=== PATIENT | female | born 1965 | race Caucasian/White ===

== ENCOUNTER 2025-06-12 09:07 | Emergency (ER) | payer BC, SELFPAY ==
--- OUTSIDE RECORDS SUMMARY | 2025-06-12 09:18 | XMS_ITS | Patient Health Record ---
Author Organization [facility] melva Address [address] [place] [address] Care Team Providers Care Litharge Mill Operator Name Role Phone Iain CUENCA, Nakul Primary Care Provider Unavailabl e Reason For Referral No Information Medications Medication SIG (Take, Route, Frequency, Duration) Notes Start Date End Date Status Cholecalciferol 10 MCG (400 UNIT) take 1 capsule by oral route daily Oral 1 Active Immunizations Vaccine Route Administration Date Status Comme nts Infuenza, trivalent, recombinant, preservative free IM Intramuscular 03/31/2013 Administered Infuenza, trivalent, recombinant, preservative free Unknown 04/18/2014 Administered Infuenza, trivalent, recombinant, preservative free Unknown 03/28/2015 Administered per pt. 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 SInce then she is maintained on synthroid. Problem Major depression, single episode (00636366) Major depressive disorder, single episode, unspecified (F32.9) Active confirmed Problem Anxiety disorder (686780475) Anxiety disorder, unspecified (F41.9) Active confirmed social anxiety Plan Of Treatment No Information Insurance Providers Payer Name Payer Address Payer Phone Subscriber Number Group Number Insured Name Patient Relationship to Insured Coverage Start Date Coverage End Date [place] [address] [place] [address] [id number] Franny De La Cruz Self - patient is the insured 6 Medical (General) History Surgical History Surgery Date(Month/Year) Appendectomy; 2016-03-05 HYSTERECTOMY (PARTIAL): endo metriosis. , started with back pain and further studies shows endometriosis. , Date of Procedure: 1995; 2016-03-05 biopsy: breast benign right . Every jul mammogram. , Date of Procedure: 1998; 2016-03-05 Colonoscopy, Date of Procedure: 11/20/2013 ; 2016-03-31
--- OUTSIDE RECORDS SUMMARY | 2025-06-12 09:18 | XMS_ITS | Clinical Summary ---
Author Organization [facility] Training Advisor Address [address] [place] [address] Care Team Providers Care Supervisor Intermediates Name Role Phone Nakul Timmons MD Primary Care Provider Unavailabl e Source Comments [facility],non-owned Affiliates and Associated Physician Practices is amultiple site organization consisting of ambulatory clinics and hospital sitesin [place], [place], [place] and [place]. This disclosure is being madepursuant to the Care Everywhere program and may not contain all information available regarding this patient. 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 Gender Identity Not on file Sexual Orientation Not on file Plan of Treatment Health Maintenance Due Date Last Done Comments COLOGUARD (AGES 45-75) - COL ON CA SCREENING 1965 COLON MONITORING 1965 COLONOSCOPY - COLON CA SCREENING 1963 CT COLONOGRAPHY - COLON CA SCREENING 1965 Colorectal Cancer Screening 1965 FIT - COLON CA SCREENING 1963 FLEX SIG - COLON CA SCREENING 1963 LIPID TESTING 1965 MAMMOGRAM 1963 HIV SCREENING 1978 HEPATITIS C SCREENING 02/15/1981 DTAP/TDAP/TD VACCINES (1 - Tdap) 1982 PNEUMOCOCCAL VACCINE 50+ (1 of 1 - PCV) 2013 ZOSTER VACCINE (1 of 2) 2013 DEPRESSION SCREENING 06/14/2024 COVID-19 VACCINE (1 - 2024-2 6 season) 2025 INFLUENZA VACCINE (#1) 2025 05/05/2016 Respiratory Syncytial Virus (RSV) Vaccine Pt: or over 60 yrs (1 - 1-dose 75+ series) 2038 HEPATITIS B VACCINE Aged Out No longe r eligible based on patient's age to complete this topic HIB VACCINE Aged Out No longer eligi ble based on patient's age to complete this topic HPV VACCINE Aged Out No longer eligi ble based on patient's age to complete this topic MENINGOCOCCAL (Group B) VACC INE SHARED DECISION-MAKING Aged Out No longer eligibl e based on patient's age to complete this topic MENINGOCOCCAL GROUPS A/C/Y/W VACCINE Aged Out No longer eligible b ased on patient's age to complete this topic Insurance [address] [id number] Care Teams Supervisor Intermediates Relationship Specialty Start Date End Date Nakul Timmons MD PCP - General Internal Medicine 05/05/16
--- OUTSIDE RECORDS SUMMARY | 2025-06-12 09:18 | XMS_ITS | Clinical Summary ---
Author Organization [facility] Address [address] [place] [address] Phone Care Team Providers Care Professional Development Manager Name Role Phone Pedro Krause MD Primary Care Provider [phone] Allergies Active Allergy Reactions Criticality Noted Date Comments Ciprofloxacin Muscle Pain Low 02/07/2018 Codeine Hives,Itching High 09/22/2011 Morphine Other (See Comments) 02/22/2018 Nausea, Stomach Pain Sulfa (Sulfonamide Antibiotics) Hives,Itching High 09/22/2011 Medications buPROPion HCl (WELLBUTRIN XL) 150 mg Extended Release 24 hour tabletIndications :Fibrocystic breast, unspecified laterality 09/18/2014 Active levothyroxine 112 mcg tabletIndications :Fibrocystic breast, unspecified laterality 08/28/2015 Active valACYclovir (VALTREX) 500 mg tablet Take 1,000 mg by mouth 2 times daily. Active Active Problems Patient Care Coordination No te Formatting of this note migh t be different from the original. Primary Care: Nakul Timmons MD Referring Provider: Manish Pearl MD [address] [place] [address] [place] [id number] Other: Problem Noted Date Diagnosed Date Acute lower GI bleeding 02/07/2018 Acute colitis 02/07/2018 Fibrocystic breast 03/29/2012 Benign breast lumps 09/22/2011 Graves' disease Depression Acute ischemic colitis Encounters Date Type Department Care Team Description 05/22/2025 External Device Data [facility] ABSTRACTION Provider, Abstract 05/01/2025 External Device Data [facility]STRACTION Provider, Abstract 04/11/2025 External Device Data [facility]CTION Provider, Abstract 04/10/2025 External Device Data [facility]CTION Provider, Abstract 04/04/2025 External Device Data [facility]STRACTION Provider, Abstract 03/27/2025 8:51 AM CDT - 03/27/2025 11:59 PM CDT Hospital Encounter [facility] [address] [place] [address] Robi Grey MD Discharge Disposition: Home or Self Care 03/27/2025 8:50 AM CDT - 03/27/2025 11:59 PM CDT Hospital Encounter [facility] [address] [place] [address] Robi Grey MD Discharge Disposition: Home or Self Care from Last 3 Months Family History Medical History Relation Name Comments Heart Disease Father Breast Cancer Maternal Cousin 1 50's Breast Cancer Maternal Cousin 2 50's Breast Cancer Maternal Cousin 3 50's Breast Cancer Maternal Grandmother Pancreatic Cancer Maternal Uncle Pancreatic Cancer Other m great uncle Breast Cancer Paternal Cousin 50's Relation Name Status Comments Father Maternal Cousin 1 Maternal Cousin 2 Maternal Cousin 3 Maternal Grandmother Maternal Uncle Other m great uncle Paternal Cousin Social History Tobacco Use Types Packs/Day Years Used Date Smoking Tobacco: Former Smokeless Tobacco: Never Alcohol Use Standard Drinks/Week Comments Yes 0 (1 standard drink = 0.6 oz pur e alcohol) rare Comments No Sex and Gender Information Value Date Recorded Sex Assigned at Not on file 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 Gender Identity Not on file Sexual Orientation Not on file Occupation Industry Job Start Date Job End Date Not on file Not on file Not on file Not on file Last Filed Vital Signs Vital Sign Reading Time Taken Comments Blood Pressure 115/67 04/05/2018 11:38 AM CDT Pulse 55 04/05/2018 11:38 AM CDT Temperature 36.7 C (98 F) 04/05/2018 11:28 AM CDT Respiratory Rate 17 04/05/2018 11:38 AM CDT Oxygen Saturation 100% 04/05/2018 11:38 AM CDT Inhaled Oxygen Concentration - - Weight 59.6 kg (131 lb 8 oz) 04/05/2018 10:14 AM CDT Height 165.1 cm (5' 5) 04/05/2018 10:14 AM CDT Body Mass Index 21.88 04/05/2018 10:14 AM CDT Plan of Treatment Health Maintenance Due Date Last Done Comments HPV/Cotest (21-29) 02/21/1984 CERVICAL CANCER SCREENING 1993 HPV/Cotest (30-65) 1993 PAP SMEAR 1993 FIT-DNA Q 3 years 02/21/2008 FIT/FOBT Q 1 year 02/21/2008 Flex Sig/CT Colonography Q 5 years 02/21/2008 ZOSTER VACCINE (2 of 2) 04/29/2020 03/04/2020 DTAP/TDAP/TD VACCINES (2 - T d or Tdap) 08/19/2022 08/19/2012 INFLUENZA VACCINE (#1) 2025 9, 03/30/2018, 03/22/2018, Additional history exists BREAST CANCER SCREENING 03/27/2026 03/27/20 25, 12/17/2023, 03/02/2023, Additional history exists COLORECTAL SCREENING 04/05/2028 04/05/2018, 04/05/2018, 11/20/2013, Additional history exists Colorectal Cancer Screening 04/05/2028 RSV VACCINE (60+ or ) (1 - 1-dose 75+ series) 2038 Procedures Procedure Name Priority Date/Time Associated Diagnosis Comments MAMMO 3D AUTOMATED BREAST US BILAT Routine 03/27/2025 10:00 AM CDT Dense breast tissue Encounter for screening mammogram for breast cancer MAMMO 3D MARTHA SCREEN BILAT W OR WO CAD Routine 03/27/2025 9:19 AM CDT Encounter for screening mammogram for breast cancer Dense breast tissue COLONOSCOPY REPORT 04/05/2018 11 :26 AM CDT from Last 3 Months or Most Recently Relevant to Health Maintenance Results * MAMMO 3D AUTOMATED BREAST US BILAT (03/27/2025 10:00 AM CDT) Anatomical Region Laterality Modality Breast Bilateral Ultrasound 03/27/2025 10:0 0 AM CDT Impressions 03/27/2025 11:15 AM CDT IMPRESSION: No sonographic evidence of malignancy in the bilateral breasts. Routine screening mammography is recommended in one year. Continued supplemental screening with bilateral whole breast ultrasound could also be performed. OVERALL FINAL ASSESSMENT: BI-RADS CATEGORY 1: Negative. DICTATION LOCATION: [facility] Narrative 03/27/2025 11:15 AM CDT EXAMINATION: AUTOMATED WHOLE BREAST BILATERAL ULTRASOUND DATE: 03/27/2025 10:00 AM. HISTORY: 60-year-old asymptomatic female with dense breast tissue presents for bilateral whole breast screening ultrasound. COMPARISON: Mammography with dates ranging from 03/27/2025 through 02/04/2023. Correlation with left breast ultrasound from 09/09/2017 and left breast ultrasound from 12/17/2023. TECHNIQUE: Automated whole breast ultrasound volumes were obtained of both breasts in the AP, lateral and medial projections. The images were interpreted on the dedicated ABUS (3D automated breast ultrasound) review station in the coronal and transverse planes. Ultrasound imaging was performed throughout all four quadrants of the bilateral breasts, including the subareolar breasts. FINDINGS: There is no evidence of a suspicious mass or architectural distortion in either breast. us Robi Grey MD MAMMO ORDERABLES Final Result * MAMMO 3D MARTHA SCREEN BILAT W OR WO CAD (03/27/2025 9:19 AM CDT) Anatomical Region Laterality Modality Breast Bilateral Mammography 03/27/2025 9:19 AM CDT Impressions 03/27/2025 11:13 AM CDT IMPRESSION: No mammographic evidence of malignancy in the bilateral breasts. Routine screening mammography is recommended in one year. OVERALL FINAL ASSESSMENT: BI-RADS CATEGORY 2: Benign findings. DICTATION LOCATION: [facility] Narrative 03/27/2025 11:13 AM CDT EXAMINATION: BILATERAL SCREENING DIGITAL MAMMOGRAPHY WITH TOMOSYNTHESIS AND CAD DATE: 03/27/2025 9:19 AM HISTORY: Routine screening mammography. History of a benign right breast surgical excisional biopsy. COMPARISON: Mammography with dates ranging from 12/17/2023 to 09/01/2016. TECHNIQUE: A bilateral screening mammogram was performed. Low-dose full-field digital breast tomosynthesis examination was performed with 2D and 3D acquisitions. Examination is read in conjunction with computer aided detection. BREAST COMPOSITION: The breasts are heterogeneously dense, which may obscure small masses. FINDINGS: There are stable post-operative findings in the right breast. There are no suspicious masses, suspicious calcifications, or other suspicious findings in either breast. There has been no significant interval change. us Robi Grey MD MAMMO ORDERABLES Final Result * COLONOSCOPY REPORT (04/05/2018 11:26 AM CDT) Narrative Procedure Note Manish Wells MD - 04/05/2018 11:26 AM CDT [facility] Endoscopy Patient Name: Jann Waller Procedure Date: 04/05/2018 Date of : 1965 Admit Type: Outpatient Age: 53 Attending MD: Manish Wells MD Procedure: Colonoscopy Indications: Follow-up of ischemic colitis. Providers: Manish Wells MD Referring MD: Nakul Timmons MD Medicines: Propofol per Anesthesia Procedure: Informed consent was obtained for the procedure, including moderate sedation after risks were discussed. Based on the pre-procedure assessment, including review of the patient's medical history, medications, allergies, and review of systems, the patient was deemed to be an appropriate candidate for sedation. A timeout was performed. Continuous ECG monitoring, pulse oximetry, blood pressure monitoring, and direct observation were performed. The Colonoscope was introduced through the anus and advanced to the terminal ileum, with identification of the appendiceal orifice and IC valve. The colonoscopy was performed without difficulty. The patient tolerated the procedure well. The quality of the bowel preparation was good. Estimated Blood Loss: Estimated blood loss: none. Findings: Internal hemorrhoids were found during retroflexion. No other significant abnormalities were identified in a careful examination of the remainder of the colon. Complications: No immediate complications. Impression: - Internal hemorrhoids. Recommendation: - Repeat colonoscopy in 10 years for surveillance. Manish Wells MD 04/05/2018 11:25:47 AM This report has been signed electronically. Number of Addenda: 0 Procedure Date: 04/05/2018 10:44:27 AM [id number] [place] [address] Mainsh Wells MD GI PROCEDURE ORDERABLES Final Re sult from Last 3 Months or Most Recently Relevant to Health Maintenance Insurance Advance Directives For more information, please contact: [phone] * Full Code (Latest Code Status on File) Date Activated Date Inactivated Comments 04/05/2018 10:15 AM 04/05/2018 1:57 PM * Full Code Date Activated Date Inactivated Comments 02/08/2018 8:11 AM 02/09/2018 5:19 PM * Full Code Date Activated Date Inactivated Comments 11/20/2013 9:35 AM 11/20/2013 1:25 PM Care Teams Professional Development Manager Relationship Specialty Start Date End Date Pedro Krause MD [address] [place] [address] [address] [place] [id number] PCP - General Internal Medicine 09/01/19
[2025-06-12 09:19] VITALS: BP 135/74; PULSE 64; RESP 18; TEMP 36.4; O2SAT 100
--- NOTE | 2025-06-12 10:00 | ED_ITS ---
HPI - General Adult General Chief complaint: Skin/Abscess/Foreign Body Stated complaint: nose Source: patient Mode of arrival: ambulatory Limitations: no limitations History of Present Illness HPI narrative: Patient presents for evaluation of a lesion in the right nostril for the past week. She states it appears to be a pimple. She has noted thick yellow drainage from the area. She has attempted not to manipulate the lesion. She denies any fever, chills, nausea, vomiting. She is not diabetic. Related Data Home Medications ?Medication ?Instructions ?Recorded ?Confirmed ?Last Taken ?Type alendronate 70 mg tablet mg PO 06/12/25 Unknown Hist ory levothyroxine 125 mcg tablet mcg 06/12/25 Unknown His tory (Synthroid) Allergies Allergy/AdvReac Type Severity Reaction Status Date / Time codeine Allergy Mild Hives Verified 06/12/25 09:28 morphine Allergy Mild Hives Verified 06/12/25 09:28 Sulfa (Sulfonamide Allergy Mild Hives Verified 06/12/25 09:28 Antibiotics) cephalexin AdvReac Intermediate Gastrointestinal Verified 06/12/25 09:28 Upset Review of Systems Review of Systems: CONSTITUTIONAL: Denies fever, chills, or sweats. EYES: Denies visual changes, redness, or discharge. ENT: reports lesion in the right nostril with thick yellow drainage. Denies sore throat or otalgia CARDIOVASCULAR: Denies chest pain, palpitations, or edema. RESPIRATORY: Denies cough or dyspnea. GASTROINTESTINAL: Denies abdominal pain, nausea, vomiting, or diarrhea. GENITOURINARY: Denies dysuria or hematuria. SKIN: Denies rash or itching. MUSCULOSKELETAL: Denies back pain, joint pain, or myalgia. NEUROLOGIC: Denies headache, numbness, dizziness, or weakness. PSYCHIATRIC: Denies anxiety or depression. [facility] Past Medical History Medical History Thyroid disorder Surgical History Surgical History No pertinent past surgical history Family History Family History Mother Family history non-contributory Social History Social History Living arrangements: with family Gender identity (if verbalized by the patient): Female Sexual Orientation (if Verbalized by the Patient): Straight or Heterosexual Exam Narrative: GENERAL: Well-appearing, well-nourished, and in no acute distress. HEAD: Normocephalic, atraumatic. EYES: PERRLA and EOMI. ENT: approximately 5 mm raised crusted lesion in the nare. Mucous membranes moist. Oropharynx without tonsillar hypertrophy exudate or other lesions. Bilateral TMs pearly grijalva nonbulging NECK: Supple. No adenopathy or masses. No carotid bruits or JVD CHEST: Clear to auscultation. No respiratory distress. No wheezes rales or rhonchi HEART: Regular rate and rhythm. No murmur heard. Normal peripheral pulses. ABDOMEN: Soft, nontender, nondistended, normal active bowel sounds. EXTREMITIES: Normal range of motion. No edema. SKIN: Warm, dry, no rash. NEURO: No focal deficits. Alert and oriented x3. PSYCH: Normal mood and affect. Course Course Emergency Course: this is a 60-year-old female who presented for evaluation of a lesion in the right nostril. Likely MRSA. Will tx with clindamycin and mupirocin. Advised not to manipulate the lesion. Follow up with primary provider. Go to the ER for worsening symptoms. Pt in agreement with plan of care. Level of Care: Express Care Visit Vital Signs Vital signs: Vital Signs Temperature 36.4 C 06/12/25 09:19 Pulse Rate 64 06/12/25 09:19 Respiratory Rate 18 06/12/25 09:19 Blood Pressure 135/74 06/12/25 09:19 Pulse Oximetry 100 06/12/25 09:19 Oxygen Delivery Room Air 06/12/25 09:19 Temperature 36.4 C 06/12/25 09:19 Pulse Rate 64 06/12/25 09:19 Respiratory Rate 18 06/12/25 09:19 Blood Pressure 135/74 06/12/25 09:19 Pulse Oximetry 100 06/12/25 09:19 Oxygen Delivery Room Air 06/12/25 09:19 MDM Differential Diagnosis Differential Diagnosis: pustule vs acne vs destructive lesion vs folliculitis vs other Discharge Plan Discharge Clinical Impression: Pustule Patient Disposition: Home Condition: Stable Instructions: Antibiotic Form, Acute Wounds (DC) Additional Instructions: PLEASE DO NOT SQUEEZE OR MANIPULATE THE AREA IF YOU HAVE FACIAL SWELLING, FEVER OR CHILLS, PLEASE GO TO THE EMERGENCY DEPARTMENT Patient Language: Citizen Of [place] Prescriptions: New clindamycin HCl [Cleocin HCl] 300 mg capsule 300 mg PO Q6H Qty: 40 0RF mupirocin [Centany] 2 % ointment 1 applic topical TID Qty: 22 0RF fluconazole 150 mg tablet 150 mg PO ONCE Qty: 1 0RF Rx Instructions: as a single dose No Action alendronate 70 mg tablet PO levothyroxine [Synthroid] 125 mcg tablet Follow-up/Referrals: Jimi,Pedro Moon MD [Primary Care Provider, Unknown] Time of Disposition: 09:45
== END 2025-06-12 09:46 | disposition home or self-care (01) ==
PROVIDERS: Emergency Provider Nurse Practitioner; PCP Internal Medicine
DX: J34.89 Other specified disorders of nose and nasal sinuses (principal); E07.9 Disorder of thyroid, unspecified
CPT/HCPCS: 99213; G0463